=== PATIENT | male | born 1945 | race Caucasian/White ===

== ENCOUNTER 2020-03-06 15:59 | Observation (INO) ==
[2020-03-06] MEDS ORDERED: Ondansetron 4 MG/2 ML VIAL IVP PRN (18:43)
[2020-03-06] MEDS ORDERED: Naloxone 0.4 MG/ML INJ IVP PRN (18:43)
[2020-03-06] MEDS: Acetaminophen 325 MG TABLET PO PRN (22:16)
[2020-03-06 22:30] LABS: Eosinophils % 0.6 %; Hemoglobin 15.2 g/dL (12.9-16.9); White Blood Count 3.3 K/mcL (4.3-11.1)
[2020-03-06 22:32] LABS: Basophils % 0.9 %; Hematocrit 46.3 % (37.5-50.1); Immature Granulocytes % 0.9 % (0-4); Immature Platelets 6.2 % (1.1-6.1); Lymphocytes # 0.9 K/mcL (0.6-4.6); Lymphocytes % 25.8 %; Mean Corpuscular HGB Conc 32.8 g/dL (31.6-35.5); Mean Corpuscular Hemoglobin 26.9 pg (28.0-33.3); Mean Corpuscular Volume 81.9 fL (83.0-100.0); Mean Platelet Volume 10.4 fL (9.4-12.4); Monocytes # 0.5 K/mcL (0.0-1.3); Monocytes % 13.8 %; Neutrophils # 1.9 K/mcL (1.6-8.9); Red Blood Count 5.65 M/mcL (4.19-5.50); Red Cell Distribution Width 15.3 % (11.5-14.5)
[2020-03-06 22:53] LABS: Alanine Aminotransferase 34 Units/L (7-52); Albumin 3.9 g/dL (3.5-5.7); Albumin/Globulin Ratio 1.6 (1.1-2.2); Alkaline Phosphatase 66 Units/L (34-104); Aspartate Amino Transferase 52 Units/L (13-39); BUN/Creatinine Ratio 15 (6-26); Bilirubin,Total 1.5 mg/dL (0.3-1.0); Blood Urea Nitrogen 24 mg/dL (8-23); Calcium 8.8 mg/dL (8.6-10.3); Carbon Dioxide 25 mEq/L (23-29); Chloride 94 mEq/L (98-107); Globulin 2.5 g/dL (2.4-3.5); Glucose 78 mg/dL (70-105); Magnesium 1.7 mg/dL (1.6-2.6); Osmolality,Calculated 269 (280-300); Phosphorous 2.3 mg/dL (2.7-4.5); Potassium 4.4 mEq/L (3.5-5.1); Sodium 128 mEq/L (136-145); Total Protein 6.4 g/dL (6.4-8.9); Troponin I < 0.03 ng/mL (< 0.04); eGFR For African Americans 52 (> 60); eGFR For Non-African Americans 43 (> 60)
[2020-03-06 23:01] LABS: Platelet Count 97 K/mcL (140-400)
[2020-03-06 23:02] LABS: Reactive Lymphocytes Present (Not Present)
[2020-03-07] MEDS ORDERED: 0.9 % Sodium Chloride 1,000 ML IVC ONE (00:22)
[2020-03-07] MEDS: cefTRIAXone 1,000 MG in Water for inj. (sterile) 10 ML IVP SCH ×2 (00:41→07:58)
[2020-03-07] MEDS ORDERED: Potassium Phosphate 44 MEQ in 0.9 % Sodium Chloride 250 ML IVPB ONE (02:25)
[2020-03-07 04:07] LABS: Hematocrit 43.3 % (37.5-50.1); Hemoglobin 14.2 g/dL (12.9-16.9); Immature Platelets 6.5 % (1.1-6.1); Mean Corpuscular HGB Conc 32.8 g/dL (31.6-35.5); Mean Corpuscular Hemoglobin 26.6 pg (28.0-33.3); Mean Corpuscular Volume 81.2 fL (83.0-100.0); Mean Platelet Volume 10.5 fL (9.4-12.4); Red Blood Count 5.33 M/mcL (4.19-5.50); Red Cell Distribution Width 15.2 % (11.5-14.5); White Blood Count 3.2 K/mcL (4.3-11.1)
[2020-03-07 04:11] LABS: Bilirubin,Urine Negative (Negative); Blood,Urine Negative (Negative); Clarity,Urine Clear (Clear); Color,Urine Yellow (Yellow); Glucose,Urine (UA) Normal (Normal); Ketones,Urine 20 mg/dL (Negative); Leukocyte Esterase,Urine Negative (Negative); Mucus,Urine Few per lpf (None-Few); Nitrite,Urine Negative (Negative); Protein,Urine 50 mg/dL (Neg-Trace); RBC,Urine 0-3 per hpf (0-3); Specific Gravity,Urine 1.029 (1.010-1.025); Squamous Epithelial Cell,Urine Few per hpf (None-Few); WBC,Urine 0-3 per hpf (0-3)
[2020-03-07 04:28] LABS: Calcium 8.4 mg/dL (8.6-10.3); Phosphorous 2.2 mg/dL (2.7-4.5); Potassium 4.4 mEq/L (3.5-5.1)
[2020-03-07] MEDS: *HR* Heparin 5,000 UNIT/ML VIAL SQ SCH ×3 (05:42→19:59)
[2020-03-07] MEDS ORDERED: Fluticasone Propionate Nasal 50 MCG/SPRAY BOTTLE NS PRN (07:55)
[2020-03-07] MEDS: Sucralfate 1 GM TABLET PO SCH ×2 (10:30→20:12)
[2020-03-07] MEDS: Aspirin Enteric Coated 81 MG Tablet PO SCH (10:31)
[2020-03-07] MEDS: Cyanocobalamin (B-12) 1,000 MCG TABLET PO SCH (10:31)
[2020-03-07] MEDS: Gabapentin 300 MG CAPSULE PO SCH ×2 (10:32→20:12)
[2020-03-07] MEDS: 0.9 % Sodium Chloride 1,000 ML IVC SCH (16:30)
[2020-03-07] MEDS: Acetaminophen 325 MG TABLET PO PRN (18:30)
[2020-03-07] MEDS: clonazePAM 0.5 MG TABLET PO SCH (20:12)
[2020-03-08] MEDS: 0.9 % Sodium Chloride 1,000 ML IVC SCH ×2 (03:49→15:46)
[2020-03-08 05:21] LABS: Albumin 3.3 g/dL (3.5-5.7); Albumin/Globulin Ratio 1.7 (1.1-2.2); Bilirubin,Total 0.8 mg/dL (0.3-1.0); Calcium 8.1 mg/dL (8.6-10.3); Phosphorous 2.7 mg/dL (2.7-4.5); Potassium 4.1 mEq/L (3.5-5.1); Total Protein 5.3 g/dL (6.4-8.9)
[2020-03-08 05:24] LABS: Hematocrit 40.6 % (37.5-50.1); Hemoglobin 13.1 g/dL (12.9-16.9); Immature Platelets 7.6 % (1.1-6.1); Mean Corpuscular HGB Conc 32.3 g/dL (31.6-35.5); Mean Corpuscular Hemoglobin 26.6 pg (28.0-33.3); Mean Corpuscular Volume 82.4 fL (83.0-100.0); Mean Platelet Volume 10.5 fL (9.4-12.4); Red Blood Count 4.93 M/mcL (4.19-5.50); Red Cell Distribution Width 15.8 % (11.5-14.5); White Blood Count 3.3 K/mcL (4.3-11.1)
[2020-03-08] MEDS: Acetaminophen 325 MG TABLET PO PRN (08:40)
[2020-03-08] MEDS: Aspirin Enteric Coated 81 MG Tablet PO SCH (08:40)
[2020-03-08] MEDS: Gabapentin 300 MG CAPSULE PO SCH ×3 (08:41→22:21)
[2020-03-08] MEDS: Sucralfate 1 GM TABLET PO SCH ×2 (08:41→22:21)
[2020-03-08] MEDS: Cyanocobalamin (B-12) 1,000 MCG TABLET PO SCH (08:42)
[2020-03-08] MEDS: lisinopriL 10 MG TABLET PO SCH (08:42)
[2020-03-08] MEDS ORDERED: Ipratropium/Albuterol Neb 3 ML IH PRN (12:42)
[2020-03-08] MEDS ORDERED: Ipratropium/Albuterol Neb 3 ML IH ONE (12:42)
[2020-03-08 14:15] LABS: Hepatitis B Surface Antigen Nonreactive (Nonreactive)
[2020-03-08 14:43] LABS: Hepatitis B Core IgM Nonreactive (Nonreactive)
[2020-03-08 14:44] LABS: Hepatitis C Virus Antibody Nonreactive (Nonreactive)
[2020-03-08] MEDS: *HR* Heparin 5,000 UNIT/ML VIAL SQ SCH ×2 (18:54→22:20)
[2020-03-08 19:39] LABS: Hepatitis A Antibody IgM Nonreactive (Nonreactive)
[2020-03-08] MEDS: clonazePAM 0.5 MG TABLET PO SCH (22:21)
[2020-03-09 05:32] LABS: Hemoglobin 12.8 g/dL (12.9-16.9); Red Cell Distribution Width 15.9 % (11.5-14.5)
[2020-03-09 05:34] LABS: Hematocrit 38.9 % (37.5-50.1); Immature Platelets 8.5 % (1.1-6.1); Mean Corpuscular HGB Conc 32.9 g/dL (31.6-35.5); Mean Corpuscular Hemoglobin 27.2 pg (28.0-33.3); Mean Corpuscular Volume 82.6 fL (83.0-100.0); Mean Platelet Volume 10.5 fL (9.4-12.4); Red Blood Count 4.71 M/mcL (4.19-5.50)
[2020-03-09 05:49] LABS: BUN/Creatinine Ratio 16 (6-26); Blood Urea Nitrogen 18 mg/dL (8-23); Calcium 8.2 mg/dL (8.6-10.3); Carbon Dioxide 25 mEq/L (23-29); Chloride 102 mEq/L (98-107); Glucose 106 mg/dL (70-105); Osmolality,Calculated 276 (280-300); Potassium 4.2 mEq/L (3.5-5.1); Sodium 132 mEq/L (136-145); eGFR For African Americans > 60 (> 60); eGFR For Non-African Americans > 60 (> 60)
[2020-03-09] MEDS: *HR* Heparin 5,000 UNIT/ML VIAL SQ SCH (06:31)
[2020-03-09] MEDS: 0.9 % Sodium Chloride 1,000 ML IVC SCH ×2 (06:32→10:18)
[2020-03-09 07:08] VITALS: BP 107/69
[2020-03-09] MEDS: Aspirin Enteric Coated 81 MG Tablet PO SCH (07:36)
[2020-03-09] MEDS: Gabapentin 300 MG CAPSULE PO SCH (07:37)
[2020-03-09] MEDS: Sucralfate 1 GM TABLET PO SCH (07:37)
[2020-03-09] MEDS: cefTRIAXone 1,000 MG in Water for inj. (sterile) 10 ML IVP SCH (07:38)
[2020-03-09] MEDS: Cyanocobalamin (B-12) 1,000 MCG TABLET PO SCH (07:38)
[2020-03-09] MEDS: lisinopriL 10 MG TABLET PO SCH (07:38)
== END 2020-03-09 11:58 | disposition home or self-care (01) ==
LOC: 3BNU
PROVIDERS: ADMIT Internal Medicine; ATTEND Internal Medicine

== ENCOUNTER 2020-11-01 17:13 | Inpatient (IN) ==
[2020-11-01] MEDS ORDERED: *HR* FentaNYL (PF) 100 MCG/2 ML VIAL IVP ONE (18:21)
[2020-11-01] MEDS ORDERED: Gadolinium Contrast Agent (WT Based) IV PRN ×2 (18:22→18:41)
[2020-11-01 18:33] LABS: Basophils % 0.2 %; Eosinophils % 0.2 %; Hematocrit 40.7 % (37.5-50.1); Hemoglobin 13.1 g/dL (12.9-16.9); Immature Granulocytes % 0.6 % (0-4); Lymphocytes % 12.7 %; Mean Corpuscular HGB Conc 32.2 g/dL (31.6-35.5); Mean Corpuscular Volume 83.9 fL (83.0-100.0); Mean Platelet Volume 9.7 fL (9.4-12.4); Monocytes # 0.9 K/mcL (0.0-1.3); Monocytes % 9.5 %; Neutrophils # 6.9 K/mcL (1.6-8.9); Platelet Count 109 K/mcL (140-400); Red Blood Count 4.85 M/mcL (4.19-5.50); Red Cell Distribution Width 15.9 % (11.5-14.5); Segmented Neutrophils % 76.8 %
[2020-11-01 18:38] LABS: Lymphocytes # 1.1 K/mcL (0.6-4.6)
[2020-11-01 18:49] LABS: Calcium 8.8 mg/dL (8.6-10.3); Potassium 4.4 mEq/L (3.5-5.1)
[2020-11-01 19:28] LABS: Platelet Estimate Slight Decrease (Normal); Reactive Lymphocytes Present (Not Present)
[2020-11-01] MEDS ORDERED: Ondansetron 4 MG/2 ML VIAL IVP PRN (21:07)
[2020-11-01] MEDS ORDERED: Acetaminophen 325 MG TABLET PO PRN (21:07)
[2020-11-01] MEDS ORDERED: Naloxone 0.4 MG/ML INJ IVP PRN (21:07)
[2020-11-01] MEDS: 0.9 % Sodium Chloride 1,000 ML IVC SCH (22:20)
[2020-11-01] MEDS: *HR* OxyCODONE Immed Rel 5 MG TABLET PO PRN (22:20)
[2020-11-02 05:39] LABS: Basophils % 0.3 %; Eosinophils % 0.3 %; Hematocrit 37.3 % (37.5-50.1); Hemoglobin 12.1 g/dL (12.9-16.9); Immature Granulocytes % 0.5 % (0-4); Lymphocytes # 0.8 K/mcL (0.6-4.6); Mean Corpuscular HGB Conc 32.4 g/dL (31.6-35.5); Mean Corpuscular Hemoglobin 27.1 pg (28.0-33.3); Mean Corpuscular Volume 83.6 fL (83.0-100.0); Mean Platelet Volume 10.2 fL (9.4-12.4); Monocytes # 0.7 K/mcL (0.0-1.3); Neutrophils # 5.1 K/mcL (1.6-8.9); Platelet Count 100 K/mcL (140-400); Red Blood Count 4.46 M/mcL (4.19-5.50); Red Cell Distribution Width 15.8 % (11.5-14.5); Segmented Neutrophils % 76.9 %; White Blood Count 6.6 K/mcL (4.3-11.1)
[2020-11-02 05:48] LABS: INR 1.4; Prothrombin Time 16.3 Seconds (9.4-12.1)
[2020-11-02 07:27] LABS: Albumin 3.5 g/dL (3.5-5.7); Albumin/Globulin Ratio 1.6 (1.1-2.2); Bilirubin,Total 1.3 mg/dL (0.3-1.0); Calcium 8.4 mg/dL (8.6-10.3); Globulin 2.2 g/dL (2.4-3.5); Magnesium 1.7 mg/dL (1.6-2.6); Potassium 4.1 mEq/L (3.5-5.1); Total Protein 5.7 g/dL (6.4-8.9)
[2020-11-02] MEDS: 0.9 % Sodium Chloride 1,000 ML IVC SCH (08:07)
[2020-11-02 08:39] LABS: Source,Synovial Fluid Left Knee
[2020-11-02] MEDS: *HR* OxyCODONE Immed Rel 5 MG TABLET PO PRN ×2 (08:52→15:39)
[2020-11-02 10:19] LABS: Glucose,Synovial Fluid < 10 mg/dL (No Ref Range)
[2020-11-02 10:30] LABS: Acinetobacter baumannii by PCR Not Detected (Not Detect); Candida albicans by PCR Not Detected (Not Detect); Candida glabrata by PCR Not Detected (Not Detect); Candida krusei by PCR Not Detected (Not Detect); Candida parapsilosis by PCR Not Detected (Not Detect); Candida tropicalis by PCR Not Detected (Not Detect); Enterobacter cloacae Cmplx PCR Not Detected (Not Detect); Enterobacteriaceae by PCR Not Detected (Not Detect); Enterococcus by PCR Not Detected (Not Detect); Escherichia coli by PCR Not Detected (Not Detect); Klebsiella oxytoca by PCR Not Detected (Not Detect); Klebsiella pneumoniae by PCR Not Detected (Not Detect); Proteus by PCR Not Detected (Not Detect); Pseudomonas aeruginosa by PCR Not Detected (Not Detect); Serratia marcescens by PCR Not Detected (Not Detect); Staphylococcus aureus by PCR Not Detected (Not Detect); Staphylococcus by PCR Not Detected (Not Detect); Streptococcus agalactiae(B)PCR DETECTED (Not Detect); Streptococcus pneumoniae PCR Not Detected (Not Detect); Streptococcus pyogenes (A) PCR Not Detected (Not Detect)
[2020-11-02 11:23] LABS: Appearance,Synovial Fluid Bloody (Clear-Hazy); Color,Synovial Fluid Red (Straw)
[2020-11-02 16:14] LABS: Bilirubin,Urine Negative (Negative); Blood,Urine Negative (Negative); Clarity,Urine Clear (Clear); Color,Urine Yellow (Yellow); Glucose,Urine (UA) Normal (Normal); Ketones,Urine Trace mg/dL (Negative); Leukocyte Esterase,Urine Negative (Negative); Mucus,Urine Few per lpf (None-Few); Nitrite,Urine Negative (Negative); PH,Urine 5.5 pH Units (5.0-8.0); Protein,Urine 30 mg/dL (Neg-Trace); RBC,Urine 0-3 per hpf (0-3); Squamous Epithelial Cell,Urine Few per hpf (None-Few); WBC,Urine 0-3 per hpf (0-3)
[2020-11-02] MEDS ORDERED: cefTRIAXone 2,000 MG in Water for inj. (sterile) 20 ML IVP SCH (17:00)
[2020-11-02] MEDS ORDERED: TOTAL JOINT MIXTURE (100ML) INTRAART ONE (17:30)
[2020-11-02] MEDS ORDERED: Povidone-Iodine 45 ML, Sodium Chloride IRRigation 1,000 ML IR ONE (17:30)
[2020-11-02] MEDS ORDERED: Hydrogen Peroxide 3% (Sterile) 473 ML SOLUTION IR ONE (18:45)
[2020-11-02] MEDS ORDERED: *HR* HYDROmorphone PF 0.5 MG/0.5 ML SYRINGE IVP PRN (18:56)
[2020-11-02] MEDS ORDERED: *HR* FentaNYL (PF) 100 MCG/2 ML VIAL ONE (19:06)
[2020-11-02] MEDS ORDERED: *HR* Propofol 200 MG/20 ML VIAL IVP ONE ×2 (19:07→20:10)
[2020-11-02] MEDS ORDERED: Lidocaine -MPF 2% 2 ML VIAL ONE (19:08)
[2020-11-02] MEDS ORDERED: *HR* Rocuronium Bromide 50 MG/5 ML VIAL ONE (19:08)
[2020-11-02] MEDS ORDERED: Gentamicin 80 MG/2 ML VIAL ONE (19:57)
[2020-11-02] MEDS ORDERED: *HR* HYDROMORPHONE 2 MG/ML VIAL ONE (20:25)
[2020-11-02] MEDS ORDERED: Ondansetron 4 MG/2 ML VIAL ONE (20:27)
[2020-11-02] MEDS ORDERED: clonazePAM 0.5 MG TABLET PO SCH (21:00)
[2020-11-02] MEDS ORDERED: carBAMazepine 200 MG TABLET PO SCH (21:00)
[2020-11-02] MEDS ORDERED: cefTRIAXone 2,000 MG in 0.9 % Sodium Chloride Mini Bag 100 ML IVPB ONE (21:00)
[2020-11-02 21:12] LABS: Source,Synovial Fluid left knee
[2020-11-02] MEDS ORDERED: Acetaminophen IV 1,000 MG/100 ML BAG IVPB ONE (21:19)
[2020-11-02 21:54] LABS: Appearance,Synovial Fluid Cloudy (Clear-Hazy); Color,Synovial Fluid Red (Straw)
[2020-11-02] MEDS ORDERED: Vancomycin 1,000 MG VIAL ONE ×2 (22:18→22:25)
[2020-11-02] MEDS ORDERED: Albumin Human 5% 12.5 GM/250 ML IV.SOLN ONE (23:37)
[2020-11-02] MEDS ORDERED: *HR* OxyCODONE Immed Rel 5 MG TABLET PO ONE (23:40)
[2020-11-03] MEDS ORDERED: cefTRIAXone 2,000 MG in 0.9 % Sodium Chloride Mini Bag 100 ML IVPB ONE (00:05)
[2020-11-03] MEDS ORDERED: Povidone-Iodine 45 ML, Sodium Chloride IRRigation 1,000 ML IR ONE (00:05)
[2020-11-03] MEDS ORDERED: Gadolinium Contrast Agent (WT Based) IV PRN ×2 (00:05)
[2020-11-03] MEDS ORDERED: Naloxone 0.4 MG/ML INJ IVP PRN (00:05)
[2020-11-03] MEDS ORDERED: Ropivacaine/PF 0.5% 49.24 ML, EPINEPHrine 0.5 MG, cloNIDine 0.08 MG, Ketorolac 30 MG, 0... INTRAART ONE (00:05)
[2020-11-03] MEDS ORDERED: *HR* HYDROmorphone PF 0.5 MG/0.5 ML SYRINGE IVP PRN (00:05)
[2020-11-03] MEDS ORDERED: Hydrogen Peroxide 3% (Sterile) 473 ML SOLUTION IR ONE (00:05)
[2020-11-03] MEDS ORDERED: Ondansetron 4 MG/2 ML VIAL IVP PRN (00:05)
[2020-11-03] MEDS: Acetaminophen 325 MG TABLET PO PRN ×3 (01:04→23:06)
[2020-11-03] MEDS: CEFAZOLIN IVPB SCH ×3 (01:05→17:22)
[2020-11-03 05:16] LABS: Red Cell Distribution Width 15.8 % (11.5-14.5)
[2020-11-03 05:17] LABS: Hematocrit 32.7 % (37.5-50.1); Hemoglobin 10.8 g/dL (12.9-16.9); Immature Platelets 4.1 % (1.1-6.1); Mean Corpuscular Hemoglobin 27.6 pg (28.0-33.3); Mean Corpuscular Volume 83.4 fL (83.0-100.0); Mean Platelet Volume 10.2 fL (9.4-12.4); Red Blood Count 3.92 M/mcL (4.19-5.50); White Blood Count 4.8 K/mcL (4.3-11.1)
[2020-11-03 05:34] LABS: BUN/Creatinine Ratio 27 (6-26); Blood Urea Nitrogen 34 mg/dL (8-23); Calcium 7.9 mg/dL (8.6-10.3); Carbon Dioxide 22 mEq/L (23-29); Chloride 104 mEq/L (98-107); Glucose 133 mg/dL (70-105); Osmolality,Calculated 284 (280-300); Potassium 4.5 mEq/L (3.5-5.1); Sodium 132 mEq/L (136-145); eGFR For African Americans > 60 (> 60); eGFR For Non-African Americans 54 (> 60)
[2020-11-03] MEDS: *HR* OxyCODONE Immed Rel 5 MG TABLET PO PRN ×3 (06:01→20:07)
[2020-11-03] MEDS: Cholecalciferol (D-3) 1,000 UNIT (25MCG) TABLET PO SCH (08:19)
[2020-11-03] MEDS: Aspirin Enteric Coated 81 MG Tablet PO SCH (08:20)
[2020-11-03] MEDS: Cyanocobalamin (B-12) 1,000 MCG TABLET PO SCH (08:20)
[2020-11-03] MEDS: lisinopriL 10 MG TABLET PO SCH (08:20)
[2020-11-03] MEDS: carBAMazepine 200 MG TABLET PO SCH ×2 (08:20→20:07)
[2020-11-03] MEDS ORDERED: Aspirin Enteric Coated 81 MG Tablet PO SCH (09:00)
[2020-11-03] MEDS ORDERED: (Alfuzosin Hcl [Uroxatral] 10 MG Tab.Er.24h) PO SCH ×2 (09:00)
[2020-11-03] MEDS ORDERED: Cholecalciferol (D-3) 1,000 UNIT (25MCG) TABLET PO SCH (09:00)
[2020-11-03] MEDS ORDERED: lisinopriL 10 MG TABLET PO SCH (09:00)
[2020-11-03] MEDS ORDERED: Cyanocobalamin (B-12) 1,000 MCG TABLET PO SCH (09:00)
[2020-11-03] MEDS: Tiotropium 10 INH DOSE IH SCH (09:54)
[2020-11-03] MEDS ORDERED: Tiotropium 10 INH DOSE IH SCH (10:00)
[2020-11-03] MEDS: Ketorolac 30 MG/ML VIAL IVP PRN (16:07)
[2020-11-03] MEDS: cefTRIAXone 2,000 MG in Water for inj. (sterile) 20 ML IVP SCH (20:08)
[2020-11-03] MEDS: clonazePAM 0.5 MG TABLET PO SCH (20:08)
[2020-11-03] MEDS ORDERED: cefTRIAXone 2,000 MG in Water for inj. (sterile) 20 ML IVP SCH (21:00)
[2020-11-04] MEDS: *HR* OxyCODONE Immed Rel 5 MG TABLET PO PRN ×3 (05:41→21:02)
[2020-11-04 06:50] LABS: Hematocrit 30.7 % (37.5-50.1); Hemoglobin 9.9 g/dL (12.9-16.9); Immature Platelets 5.3 % (1.1-6.1); Mean Corpuscular HGB Conc 32.2 g/dL (31.6-35.5); Mean Corpuscular Hemoglobin 26.9 pg (28.0-33.3); Mean Corpuscular Volume 83.4 fL (83.0-100.0); Mean Platelet Volume 10.6 fL (9.4-12.4); Red Blood Count 3.68 M/mcL (4.19-5.50); Red Cell Distribution Width 15.5 % (11.5-14.5); White Blood Count 5.5 K/mcL (4.3-11.1)
[2020-11-04 07:07] LABS: BUN/Creatinine Ratio 28 (6-26); Blood Urea Nitrogen 34 mg/dL (8-23); Calcium 8.3 mg/dL (8.6-10.3); Carbon Dioxide 28 mEq/L (23-29); Chloride 103 mEq/L (98-107); Glucose 106 mg/dL (70-105); Osmolality,Calculated 286 (280-300); Sodium 134 mEq/L (136-145); eGFR For African Americans > 60 (> 60); eGFR For Non-African Americans 57 (> 60)
[2020-11-04] MEDS: Cholecalciferol (D-3) 1,000 UNIT (25MCG) TABLET PO SCH (09:15)
[2020-11-04] MEDS: Aspirin Enteric Coated 81 MG Tablet PO SCH (09:15)
[2020-11-04] MEDS: Cyanocobalamin (B-12) 1,000 MCG TABLET PO SCH (09:16)
[2020-11-04] MEDS: Ketorolac 30 MG/ML VIAL IVP PRN ×2 (09:16→17:49)
[2020-11-04] MEDS: lisinopriL 10 MG TABLET PO SCH (09:21)
[2020-11-04] MEDS: carBAMazepine 200 MG TABLET PO SCH ×2 (09:21→21:03)
[2020-11-04] MEDS: Tiotropium 10 INH DOSE IH SCH (09:54)
[2020-11-04] MEDS: clonazePAM 0.5 MG TABLET PO SCH (21:03)
[2020-11-04] MEDS: cefTRIAXone 2,000 MG in Water for inj. (sterile) 20 ML IVP SCH (21:04)
[2020-11-05 02:06] LABS: Hematocrit 29.7 % (37.5-50.1); Hemoglobin 9.6 g/dL (12.9-16.9); Immature Platelets 4.2 % (1.1-6.1); Mean Corpuscular HGB Conc 32.3 g/dL (31.6-35.5); Mean Corpuscular Volume 83.4 fL (83.0-100.0); Mean Platelet Volume 10.7 fL (9.4-12.4); Red Blood Count 3.56 M/mcL (4.19-5.50); Red Cell Distribution Width 15.4 % (11.5-14.5); White Blood Count 5.8 K/mcL (4.3-11.1)
[2020-11-05 02:26] LABS: BUN/Creatinine Ratio 24 (6-26); Blood Urea Nitrogen 30 mg/dL (8-23); Calcium 8.1 mg/dL (8.6-10.3); Carbon Dioxide 27 mEq/L (23-29); Chloride 100 mEq/L (98-107); Glucose 84 mg/dL (70-105); Osmolality,Calculated 281 (280-300); Potassium 4.6 mEq/L (3.5-5.1); Sodium 133 mEq/L (136-145); eGFR For African Americans > 60 (> 60); eGFR For Non-African Americans 57 (> 60)
[2020-11-05] MEDS: *HR* OxyCODONE Immed Rel 5 MG TABLET PO PRN ×2 (07:37→13:58)
[2020-11-05] MEDS: carBAMazepine 200 MG TABLET PO SCH ×2 (07:37→20:25)
[2020-11-05] MEDS: lisinopriL 10 MG TABLET PO SCH (07:38)
[2020-11-05] MEDS: Cyanocobalamin (B-12) 1,000 MCG TABLET PO SCH (07:38)
[2020-11-05] MEDS: Cholecalciferol (D-3) 1,000 UNIT (25MCG) TABLET PO SCH (07:38)
[2020-11-05] MEDS: Aspirin Enteric Coated 81 MG Tablet PO SCH (07:38)
[2020-11-05] MEDS: Tiotropium 10 INH DOSE IH SCH (11:05)
[2020-11-05] MEDS: Ketorolac 30 MG/ML VIAL IVP PRN ×2 (11:32→19:35)
[2020-11-05] MEDS: clonazePAM 0.5 MG TABLET PO SCH (20:25)
[2020-11-05] MEDS: cefTRIAXone 2,000 MG in Water for inj. (sterile) 20 ML IVP SCH (20:26)
[2020-11-06 01:12] LABS: Hematocrit 30.1 % (37.5-50.1); Hemoglobin 10.1 g/dL (12.9-16.9); Mean Corpuscular HGB Conc 33.6 g/dL (31.6-35.5); Mean Corpuscular Hemoglobin 27.4 pg (28.0-33.3); Mean Corpuscular Volume 81.6 fL (83.0-100.0); Mean Platelet Volume 10.2 fL (9.4-12.4); Platelet Count 148 K/mcL (140-400); Red Blood Count 3.69 M/mcL (4.19-5.50); Red Cell Distribution Width 15.1 % (11.5-14.5)
[2020-11-06 01:30] LABS: BUN/Creatinine Ratio 24 (6-26); Blood Urea Nitrogen 30 mg/dL (8-23); Calcium 8.2 mg/dL (8.6-10.3); Carbon Dioxide 25 mEq/L (23-29); Chloride 101 mEq/L (98-107); Glucose 92 mg/dL (70-105); Osmolality,Calculated 282 (280-300); Potassium 4.1 mEq/L (3.5-5.1); Sodium 133 mEq/L (136-145); eGFR For African Americans > 60 (> 60); eGFR For Non-African Americans 56 (> 60)
[2020-11-06] MEDS: Tiotropium 10 INH DOSE IH SCH (07:58)
[2020-11-06] MEDS: Aspirin Enteric Coated 81 MG Tablet PO SCH (08:18)
[2020-11-06] MEDS: carBAMazepine 200 MG TABLET PO SCH ×2 (08:19→21:28)
[2020-11-06] MEDS: Cholecalciferol (D-3) 1,000 UNIT (25MCG) TABLET PO SCH (08:19)
[2020-11-06] MEDS: *HR* OxyCODONE Immed Rel 5 MG TABLET PO PRN ×2 (08:20→14:35)
[2020-11-06] MEDS: lisinopriL 10 MG TABLET PO SCH (08:22)
[2020-11-06] MEDS: Cyanocobalamin (B-12) 1,000 MCG TABLET PO SCH (08:23)
[2020-11-06] MEDS: Ketorolac 30 MG/ML VIAL IVP PRN ×2 (12:13→21:29)
[2020-11-06] MEDS: Acetaminophen 325 MG TABLET PO PRN (14:35)
[2020-11-06 17:00] LABS: C-Reactive Protein 66 mg/L (Less than 10)
[2020-11-06] MEDS: *HR* Heparin 5,000 UNIT/ML VIAL SQ SCH (18:24)
[2020-11-06] MEDS: clonazePAM 0.5 MG TABLET PO SCH (21:28)
[2020-11-06] MEDS: cefTRIAXone 2,000 MG in Water for inj. (sterile) 20 ML IVP SCH (21:28)
[2020-11-07] MEDS: *HR* Heparin 5,000 UNIT/ML VIAL SQ SCH ×2 (04:56→18:18)
[2020-11-07 05:20] LABS: Hematocrit 29.6 % (37.5-50.1); Hemoglobin 9.9 g/dL (12.9-16.9); Mean Corpuscular HGB Conc 33.4 g/dL (31.6-35.5); Mean Corpuscular Hemoglobin 27.7 pg (28.0-33.3); Mean Corpuscular Volume 82.7 fL (83.0-100.0); Mean Platelet Volume 9.6 fL (9.4-12.4); Platelet Count 190 K/mcL (140-400); Red Blood Count 3.58 M/mcL (4.19-5.50); Red Cell Distribution Width 15.2 % (11.5-14.5); White Blood Count 6.5 K/mcL (4.3-11.1)
[2020-11-07 05:42] LABS: BUN/Creatinine Ratio 25 (6-26); Blood Urea Nitrogen 29 mg/dL (8-23); Calcium 8.2 mg/dL (8.6-10.3); Carbon Dioxide 28 mEq/L (23-29); Chloride 98 mEq/L (98-107); Glucose 100 mg/dL (70-105); Osmolality,Calculated 280 (280-300); Potassium 4.5 mEq/L (3.5-5.1); Sodium 132 mEq/L (136-145); eGFR For African Americans > 60 (> 60); eGFR For Non-African Americans 60 (> 60)
[2020-11-07] MEDS: Tiotropium 10 INH DOSE IH SCH (07:46)
[2020-11-07] MEDS: Cholecalciferol (D-3) 1,000 UNIT (25MCG) TABLET PO SCH (08:30)
[2020-11-07] MEDS: carBAMazepine 200 MG TABLET PO SCH ×2 (08:30→20:43)
[2020-11-07] MEDS: Aspirin Enteric Coated 81 MG Tablet PO SCH (08:30)
[2020-11-07] MEDS: Cyanocobalamin (B-12) 1,000 MCG TABLET PO SCH (08:31)
[2020-11-07] MEDS: lisinopriL 10 MG TABLET PO SCH (08:31)
[2020-11-07] MEDS: Acetaminophen 325 MG TABLET PO PRN ×2 (08:31→14:45)
[2020-11-07] MEDS: *HR* OxyCODONE Immed Rel 5 MG TABLET PO PRN ×3 (08:32→20:43)
[2020-11-07] MEDS: clonazePAM 0.5 MG TABLET PO SCH (20:43)
[2020-11-07] MEDS: cefTRIAXone 2,000 MG in Water for inj. (sterile) 20 ML IVP SCH (20:43)
[2020-11-08] MEDS: *HR* Heparin 5,000 UNIT/ML VIAL SQ SCH (05:07)
[2020-11-08 05:32] LABS: Hematocrit 30.8 % (37.5-50.1); Mean Corpuscular HGB Conc 32.5 g/dL (31.6-35.5); Mean Corpuscular Volume 83.2 fL (83.0-100.0); Mean Platelet Volume 9.8 fL (9.4-12.4); Platelet Count 218 K/mcL (140-400); Red Cell Distribution Width 15.3 % (11.5-14.5); White Blood Count 6.7 K/mcL (4.3-11.1)
[2020-11-08 05:50] LABS: BUN/Creatinine Ratio 19 (6-26); Blood Urea Nitrogen 22 mg/dL (8-23); Calcium 8.5 mg/dL (8.6-10.3); Carbon Dioxide 30 mEq/L (23-29); Chloride 99 mEq/L (98-107); Glucose 103 mg/dL (70-105); Osmolality,Calculated 278 (280-300); Potassium 4.4 mEq/L (3.5-5.1); Sodium 132 mEq/L (136-145); eGFR For African Americans > 60 (> 60); eGFR For Non-African Americans 60 (> 60)
[2020-11-08] MEDS: Tiotropium 10 INH DOSE IH SCH (07:25)
[2020-11-08 07:28] VITALS: BP 125/73
[2020-11-08] MEDS: lisinopriL 10 MG TABLET PO SCH (08:15)
[2020-11-08] MEDS: Cholecalciferol (D-3) 1,000 UNIT (25MCG) TABLET PO SCH (08:15)
[2020-11-08] MEDS: Aspirin Enteric Coated 81 MG Tablet PO SCH (08:16)
[2020-11-08] MEDS: Cyanocobalamin (B-12) 1,000 MCG TABLET PO SCH (08:16)
[2020-11-08] MEDS: carBAMazepine 200 MG TABLET PO SCH (08:16)
[2020-11-08] MEDS: *HR* OxyCODONE Immed Rel 5 MG TABLET PO PRN (08:21)
== END 2020-11-08 15:27 | disposition home health service (06) | DRG 463 ==
LOC: 3NENU 17:13 → EMEROOARM 17:13 → SUATTDRO 18:49 → 3NENU 19:25
PROVIDERS: ADMIT Internal Medicine; ATTEND Family Medicine

== ENCOUNTER 2021-07-23 18:39 | Inpatient (IN) ==
[2021-07-23] MEDS ORDERED: *HR* HYDROmorphone (PF) 1 MG/ML SYRINGE IVP ONE (20:58)
[2021-07-23] MEDS ORDERED: Vancomycin 2,000 MG/520 ML IV.SOLN IVPB ONE (21:01)
[2021-07-23 21:22] LABS: Basophils # 0.1 K/mcL (0.0-0.2); Basophils % 0.5 %; Eosinophils # 0.1 K/mcL (0.0-0.6); Eosinophils % 0.8 %; Hematocrit 38.1 % (37.5-50.1); Hemoglobin 12.1 g/dL (12.9-16.9); Immature Granulocytes % 0.5 % (0-4); Lymphocytes % 9.3 %; Mean Corpuscular HGB Conc 31.8 g/dL (31.6-35.5); Mean Corpuscular Hemoglobin 24.3 pg (28.0-33.3); Mean Corpuscular Volume 76.7 fL (83.0-100.0); Mean Platelet Volume 9.8 fL (9.4-12.4); Monocytes # 0.7 K/mcL (0.0-1.3); Monocytes % 6.4 %; Neutrophils # 9.2 K/mcL (1.6-8.9); Platelet Count 130 K/mcL (140-400); Red Blood Count 4.97 M/mcL (4.19-5.50); Red Cell Distribution Width 17.3 % (11.5-14.5); Segmented Neutrophils % 82.5 %; White Blood Count 11.1 K/mcL (4.3-11.1)
[2021-07-23 21:29] LABS: INR 1.3; Prothrombin Time 14.3 Seconds (9.4-12.1)
[2021-07-23 21:31] LABS: Activated Partial Thrombo Time 33.4 Seconds (26.0-36.0)
[2021-07-23 21:39] LABS: Alanine Aminotransferase 10 Units/L (7-52); Albumin 3.6 g/dL (3.5-5.7); Albumin/Globulin Ratio 1.6 (1.1-2.2); Alkaline Phosphatase 58 Units/L (34-104); Aspartate Amino Transferase 21 Units/L (13-39); BUN/Creatinine Ratio 13 (6-26); Bilirubin,Total 0.8 mg/dL (0.3-1.0); Blood Urea Nitrogen 17 mg/dL (8-23); Calcium 8.6 mg/dL (8.6-10.3); Carbon Dioxide 28 mEq/L (23-29); Chloride 102 mEq/L (98-107); Globulin 2.2 g/dL (2.4-3.5); Glucose 101 mg/dL (70-105); Osmolality,Calculated 282 (280-300); Potassium 4.1 mEq/L (3.5-5.1); Sodium 135 mEq/L (136-145); Total Protein 5.8 g/dL (6.4-8.9); eGFR For African Americans > 60 (> 60); eGFR For Non-African Americans 54 (> 60)
[2021-07-23 21:47] LABS: Troponin I < 0.03 ng/mL (< 0.04)
[2021-07-23] MEDS ORDERED: cefTRIAXone 1,000 MG in 0.9 % Sodium Chloride Mini Bag 100 ML IVPB ONE (22:29)
[2021-07-23] MEDS ORDERED: 0.9 % Sodium Chloride 1,000 ML IVC ONE (23:31)
[2021-07-23] MEDS ORDERED: Acetaminophen 325 MG TABLET PO PRN (23:48)
[2021-07-23] MEDS ORDERED: Naloxone 0.4 MG/ML INJ IVP PRN (23:48)
[2021-07-23] MEDS ORDERED: Ondansetron 4 MG/2 ML VIAL IVP PRN (23:48)
[2021-07-24 02:22] LABS: Bilirubin,Urine Negative (Negative); Blood,Urine Negative (Negative); Clarity,Urine Clear (Clear); Color,Urine Light-Orange (Yellow); Glucose,Urine (UA) Normal (Normal); Ketones,Urine Negative (Negative); Leukocyte Esterase,Urine Negative (Negative); Mucus,Urine Many per lpf (None-Few); Nitrite,Urine Negative (Negative); Protein,Urine 50 mg/dL (Neg-Trace); RBC,Urine 0-3 per hpf (0-3); Specific Gravity,Urine > 1.030 (1.010-1.025); Squamous Epithelial Cell,Urine Few per hpf (None-Few)
[2021-07-24 06:34] LABS: Basophils # 0.1 K/mcL (0.0-0.2); Basophils % 0.6 %; Eosinophils # 0.2 K/mcL (0.0-0.6); Eosinophils % 1.9 %; Hematocrit 35.5 % (37.5-50.1); Hemoglobin 11.5 g/dL (12.9-16.9); Immature Granulocytes % 0.4 % (0-4); Lymphocytes % 12.4 %; Mean Corpuscular HGB Conc 32.4 g/dL (31.6-35.5); Mean Corpuscular Volume 77.2 fL (83.0-100.0); Mean Platelet Volume 9.7 fL (9.4-12.4); Monocytes # 0.8 K/mcL (0.0-1.3); Monocytes % 9.3 %; Neutrophils # 6.2 K/mcL (1.6-8.9); Platelet Count 122 K/mcL (140-400); Red Cell Distribution Width 17.5 % (11.5-14.5); Segmented Neutrophils % 75.4 %; White Blood Count 8.2 K/mcL (4.3-11.1)
[2021-07-24 06:43] LABS: INR 1.3; Prothrombin Time 14.9 Seconds (9.4-12.1)
[2021-07-24 06:51] LABS: Calcium 8.2 mg/dL (8.6-10.3); Magnesium 1.7 mg/dL (1.6-2.6)
[2021-07-24] MEDS: cefTRIAXone 1,000 MG in 0.9 % Sodium Chloride Mini Bag 100 ML IVPB SCH (08:55)
[2021-07-24] MEDS ORDERED: Vancomycin 1,500 MG/265 ML IV.SOLN IVPB SCH (10:00)
[2021-07-24] MEDS ORDERED: Vancomycin 2,000 MG/520 ML IV.SOLN IVPB SCH (22:00)
[2021-07-25] MEDS: clonazePAM 0.5 MG TABLET PO SCH ×2 (00:16→21:26)
[2021-07-25 04:50] LABS: Hematocrit 37.4 % (37.5-50.1); Hemoglobin 11.8 g/dL (12.9-16.9); Mean Corpuscular HGB Conc 31.6 g/dL (31.6-35.5); Mean Corpuscular Hemoglobin 24.6 pg (28.0-33.3); Mean Corpuscular Volume 77.9 fL (83.0-100.0); Mean Platelet Volume 10.5 fL (9.4-12.4); Platelet Count 137 K/mcL (140-400); Red Cell Distribution Width 17.4 % (11.5-14.5); White Blood Count 7.2 K/mcL (4.3-11.1)
[2021-07-25 05:06] LABS: BUN/Creatinine Ratio 15 (6-26); Blood Urea Nitrogen 19 mg/dL (8-23); Calcium 8.4 mg/dL (8.6-10.3); Carbon Dioxide 24 mEq/L (23-29); Chloride 103 mEq/L (98-107); Glucose 91 mg/dL (70-105); Osmolality,Calculated 282 (280-300); Sodium 135 mEq/L (136-145); eGFR For African Americans > 60 (> 60); eGFR For Non-African Americans 56 (> 60)
[2021-07-25] MEDS: cefTRIAXone 1,000 MG in 0.9 % Sodium Chloride Mini Bag 100 ML IVPB SCH (10:11)
[2021-07-25] MEDS: CeFAZolin 2,000 MG/120 ML BAG IVPB SCH ×2 (16:30→23:54)
[2021-07-25] MEDS: carBAMazepine 200 MG TABLET PO SCH (19:44)
[2021-07-25] MEDS ORDERED: NON-FORMULARY MEDICATION 1 EACH EACH (Clonazepam [Clonazepam] 0.5 MG Tablet) PO SCH (21:00)
[2021-07-26 05:26] LABS: Basophils # 0.1 K/mcL (0.0-0.2); Eosinophils # 0.4 K/mcL (0.0-0.6); Hematocrit 37.3 % (37.5-50.1); Hemoglobin 11.7 g/dL (12.9-16.9); Immature Granulocytes % 0.2 % (0-4); Lymphocytes # 1.4 K/mcL (0.6-4.6); Lymphocytes % 23.4 %; Mean Corpuscular HGB Conc 31.4 g/dL (31.6-35.5); Mean Corpuscular Hemoglobin 24.5 pg (28.0-33.3); Mean Platelet Volume 10.5 fL (9.4-12.4); Monocytes # 0.7 K/mcL (0.0-1.3); Neutrophils # 3.5 K/mcL (1.6-8.9); Platelet Count 134 K/mcL (140-400); Red Blood Count 4.78 M/mcL (4.19-5.50); Red Cell Distribution Width 17.3 % (11.5-14.5); Segmented Neutrophils % 58.4 %
[2021-07-26 05:36] LABS: % Iron Saturation 7 % (20-55); BUN/Creatinine Ratio 13 (6-26); Blood Urea Nitrogen 15 mg/dL (8-23); Calcium 8.3 mg/dL (8.6-10.3); Carbon Dioxide 25 mEq/L (23-29); Chloride 104 mEq/L (98-107); Glucose 89 mg/dL (70-105); Iron 22 mcg/dL (65-175); Magnesium 1.7 mg/dL (1.6-2.6); Osmolality,Calculated 282 (280-300); Sodium 136 mEq/L (136-145); Transferrin 230 mg/dL (203-362); eGFR For African Americans > 60 (> 60); eGFR For Non-African Americans > 60 (> 60)
[2021-07-26 05:48] LABS: Ferritin 46 ng/mL (20-250)
[2021-07-26 05:53] LABS: Folate 9.4 ng/mL (3.0-16.0)
[2021-07-26 06:09] LABS: Vitamin B12 > 1500 pg/mL (250-1100)
[2021-07-26] MEDS: *HR* Enoxaparin 40 MG/0.4 ML SYRINGE SQ SCH (06:24)
[2021-07-26] MEDS: Aspirin Enteric Coated 81 MG Tablet PO SCH (08:55)
[2021-07-26] MEDS: CeFAZolin 2,000 MG/120 ML BAG IVPB SCH ×3 (08:55→23:39)
[2021-07-26] MEDS: Loratadine 10 MG TABLET PO SCH (08:55)
[2021-07-26] MEDS: lisinopriL 10 MG TABLET PO SCH (08:55)
[2021-07-26] MEDS: carBAMazepine 200 MG TABLET PO SCH ×2 (08:56→20:42)
[2021-07-26] MEDS: Cyanocobalamin (B-12) 1,000 MCG TABLET PO SCH (08:56)
[2021-07-26] MEDS: Cholecalciferol (D-3) 1,000 UNIT (25MCG) TABLET PO SCH (08:56)
[2021-07-26 09:28] LABS: C-Reactive Protein 66 mg/L (Less than 10)
[2021-07-26] MEDS: Iron Sucrose Complex 250 MG in 0.9 % Sodium Chloride 250 ML IVPB SCH (09:35)
[2021-07-26] MEDS: clonazePAM 0.5 MG TABLET PO SCH (20:42)
[2021-07-27] MEDS: *HR* Enoxaparin 40 MG/0.4 ML SYRINGE SQ SCH (05:29)
[2021-07-27] MEDS: Aspirin Enteric Coated 81 MG Tablet PO SCH (08:00)
[2021-07-27] MEDS: Cholecalciferol (D-3) 1,000 UNIT (25MCG) TABLET PO SCH (08:00)
[2021-07-27] MEDS: carBAMazepine 200 MG TABLET PO SCH (08:00)
[2021-07-27] MEDS: lisinopriL 10 MG TABLET PO SCH (08:00)
[2021-07-27] MEDS: Loratadine 10 MG TABLET PO SCH (08:00)
[2021-07-27] MEDS: Cyanocobalamin (B-12) 1,000 MCG TABLET PO SCH (08:00)
[2021-07-27] MEDS: CeFAZolin 2,000 MG/120 ML BAG IVPB SCH (08:04)
[2021-07-27] MEDS: Iron Sucrose Complex 250 MG in 0.9 % Sodium Chloride 250 ML IVPB SCH (08:41)
[2021-07-27 10:53] VITALS: BP 146/81; PULSE 56; TEMP 97.3; O2SAT 98
== END 2021-07-27 14:15 | disposition home or self-care (01) | DRG 603 ==
LOC: 4WAOSI 18:39 → EMEROOARM 18:39 → SUATTDRO 07-24 00:12 → 4WAOSI 07-24 00:55
PROVIDERS: ADMIT Internal Medicine; ATTEND Pharmacist

== ENCOUNTER 2021-10-17 11:53 | Inpatient (IN) ==
[2021-10-17 12:52] LABS: Basophils # 0.1 K/mcL (0.0-0.2); Basophils % 0.7 %; Eosinophils # 0.2 K/mcL (0.0-0.6); Eosinophils % 2.7 %; Hematocrit 47.4 % (37.5-50.1); Immature Granulocytes % 0.3 % (0-4); Lymphocytes # 1.7 K/mcL (0.6-4.6); Lymphocytes % 23.9 %; Mean Corpuscular HGB Conc 33.8 g/dL (31.6-35.5); Mean Corpuscular Hemoglobin 27.8 pg (28.0-33.3); Mean Corpuscular Volume 82.4 fL (83.0-100.0); Mean Platelet Volume 9.5 fL (9.4-12.4); Monocytes # 0.5 K/mcL (0.0-1.3); Monocytes % 7.3 %; Neutrophils # 4.6 K/mcL (1.6-8.9); Platelet Count 153 K/mcL (140-400); Red Blood Count 5.75 M/mcL (4.19-5.50); Red Cell Distribution Width 17.3 % (11.5-14.5); Segmented Neutrophils % 65.1 %; White Blood Count 7.1 K/mcL (4.3-11.1)
[2021-10-17 13:34] LABS: BUN/Creatinine Ratio 10 (6-26); Blood Urea Nitrogen 13 mg/dL (8-23); Calcium 9.3 mg/dL (8.6-10.3); Carbon Dioxide 26 mEq/L (23-29); Chloride 94 mEq/L (98-107); Glucose 93 mg/dL (70-105); Osmolality,Calculated 264 (280-300); Potassium 4.4 mEq/L (3.5-5.1); Sodium 127 mEq/L (136-145); eGFR For African Americans > 60 (> 60); eGFR For Non-African Americans 55 (> 60)
[2021-10-17 13:45] LABS: Influenza A PCR Negative (Negative); Influenza B PCR Negative (Negative); Resp. Syncytial Virus PCR Negative (Negative)
[2021-10-17] MEDS ORDERED: cefTRIAXone 2,000 MG in 0.9 % Sodium Chloride 20 ML IVP ONE (13:47)
[2021-10-17] MEDS ORDERED: Azithromycin 500 MG in 0.9 % Sodium Chloride 250 ML IVPB ONE (13:47)
[2021-10-17 14:02] LABS: SARS-CoV-2 by PCR (In House) Negative (Negative)
[2021-10-17] MEDS ORDERED: Ondansetron 4 MG/2 ML VIAL IVP PRN (15:00)
[2021-10-17] MEDS ORDERED: Melatonin 3 MG TABLET PO PRN (15:00)
[2021-10-17] MEDS ORDERED: Naloxone 0.4 MG/ML INJ IVP PRN (15:00)
[2021-10-17] MEDS ORDERED: Acetaminophen 325 MG TABLET PO PRN (15:00)
[2021-10-17] MEDS ORDERED: Perflutren Lipid Microsphere 1.3 ML in 0.9 % Sodium Chloride 8.7 ML IVP PRN (15:04)
[2021-10-17] MEDS: Ipratropium/Albuterol Neb 3 ML IH SCH ×2 (16:05→20:47)
[2021-10-17] MEDS: carBAMazepine 200 MG TABLET PO SCH (20:25)
[2021-10-17] MEDS: clonazePAM 0.5 MG TABLET PO SCH (21:53)
[2021-10-17] MEDS ORDERED: 0.9 % Sodium Chloride 1,000 ML IVC SCH (22:30)
[2021-10-18] MEDS: Ipratropium/Albuterol Neb 3 ML IH SCH ×3 (00:35→07:07)
[2021-10-18 03:27] LABS: Hematocrit 43.3 % (37.5-50.1); Hemoglobin 15.4 g/dL (12.9-16.9); Mean Corpuscular HGB Conc 35.6 g/dL (31.6-35.5); Mean Corpuscular Hemoglobin 29.6 pg (28.0-33.3); Mean Corpuscular Volume 83.1 fL (83.0-100.0); Mean Platelet Volume 10.3 fL (9.4-12.4); Platelet Count 143 K/mcL (140-400); Red Blood Count 5.21 M/mcL (4.19-5.50); Red Cell Distribution Width 17.2 % (11.5-14.5); White Blood Count 7.2 K/mcL (4.3-11.1)
[2021-10-18 03:53] LABS: BUN/Creatinine Ratio 12 (6-26); Blood Urea Nitrogen 16 mg/dL (8-23); Calcium 8.9 mg/dL (8.6-10.3); Carbon Dioxide 25 mEq/L (23-29); Chloride 91 mEq/L (98-107); Chol/HDL Ratio 2.7 (0-4.9); Cholesterol 134 mg/dL (< 200); Glucose 97 mg/dL (70-105); HDL Cholesterol 49 mg/dL (40-59); LDL Cholesterol,Calculated 70 mg/dL (< 100); Osmolality,Calculated 267 (280-300); Potassium 3.7 mEq/L (3.5-5.1); Sodium 128 mEq/L (136-145); Triglycerides 77 mg/dL (< 150); eGFR For African Americans > 60 (> 60); eGFR For Non-African Americans 52 (> 60)
[2021-10-18] MEDS: (Terbinafine Hcl [Terbinafine Hcl] 250 MG Tablet) PO SCH (08:01)
[2021-10-18] MEDS: Cyanocobalamin (B-12) 1,000 MCG TABLET PO SCH (08:02)
[2021-10-18] MEDS: Aspirin Enteric Coated 81 MG Tablet PO SCH (08:02)
[2021-10-18] MEDS: carBAMazepine 200 MG TABLET PO SCH ×2 (08:03→21:36)
[2021-10-18] MEDS: Cholecalciferol (D-3) 1,000 UNIT (25MCG) TABLET PO SCH (08:03)
[2021-10-18] MEDS: Levalbuterol Neb 1.25 MG/3 ML IH SCH ×3 (08:41→20:25)
[2021-10-18] MEDS ORDERED: lisinopriL 20 MG TABLET PO SCH (09:00)
[2021-10-18] MEDS ORDERED: Azithromycin 250 MG TABLET PO SCH (09:00)
[2021-10-18] MEDS ORDERED: Tiotropium 10 INH DOSE IH SCH (09:00)
[2021-10-18] MEDS ORDERED: *HR* Heparin 5,000 UNIT/ML VIAL IVP ONE (09:45)
[2021-10-18] MEDS ORDERED: *HR* Heparin 5,000 UNIT/ML VIAL IVP PRN ×2 (09:45)
[2021-10-18 10:37] LABS: Red Cell Distribution Width 17.2 % (11.5-14.5)
[2021-10-18 10:39] LABS: Hematocrit 42.4 % (37.5-50.1); Hemoglobin 14.4 g/dL (12.9-16.9); Immature Platelets 4.7 % (1.1-6.1); Mean Corpuscular Hemoglobin 28.3 pg (28.0-33.3); Mean Corpuscular Volume 83.5 fL (83.0-100.0); Mean Platelet Volume 9.4 fL (9.4-12.4); Red Blood Count 5.08 M/mcL (4.19-5.50); White Blood Count 6.4 K/mcL (4.3-11.1)
[2021-10-18 10:46] LABS: INR 1.2; Prothrombin Time 13.4 Seconds (9.4-12.1)
[2021-10-18 10:52] LABS: Heparin anti-factor XA UFH < 0.04 IU/mL (0.30-0.70)
[2021-10-18] MEDS: Heparin 25,000UNIT/250ML 1/2NS 25,000 UNIT/250 ML IV.SOLN IVC SCH (11:38)
[2021-10-18] MEDS: cefTRIAXone 1,000 MG in 0.9 % Sodium Chloride 10 ML IVP SCH (14:33)
[2021-10-18] MEDS: clonazePAM 0.5 MG TABLET PO SCH (21:36)
[2021-10-19] MEDS: Levalbuterol Neb 1.25 MG/3 ML IH SCH ×4 (03:29→22:55)
[2021-10-19] MEDS: Heparin 25,000UNIT/250ML 1/2NS 25,000 UNIT/250 ML IV.SOLN IVC SCH (08:07)
[2021-10-19 09:11] LABS: BUN/Creatinine Ratio 14 (6-26); Blood Urea Nitrogen 16 mg/dL (8-23); Calcium 8.8 mg/dL (8.6-10.3); Carbon Dioxide 24 mEq/L (23-29); Chloride 95 mEq/L (98-107); Glucose 94 mg/dL (70-105); Osmolality,Calculated 263 (280-300); Potassium 4.4 mEq/L (3.5-5.1); Sodium 126 mEq/L (136-145); eGFR For African Americans > 60 (> 60); eGFR For Non-African Americans > 60 (> 60)
[2021-10-19] MEDS ORDERED: 0.9 % Sodium Chloride 500 ML IVC ONE (09:35)
[2021-10-19] MEDS ORDERED: Lidocaine Viscous Oral Soln 15 ML SOLUTION MM PRN (09:35)
[2021-10-19] MEDS: *HR* FentaNYL (PF) 100 MCG/2 ML VIAL IVP PRN ×7 (10:03→10:40)
[2021-10-19] MEDS: *HR* Midazolam HCl 5 MG/5 ML VIAL IVP PRN ×6 (10:03→10:40)
[2021-10-19] MEDS: Aspirin Enteric Coated 81 MG Tablet PO SCH (11:55)
[2021-10-19] MEDS: (Terbinafine Hcl [Terbinafine Hcl] 250 MG Tablet) PO SCH (11:56)
[2021-10-19] MEDS: Cyanocobalamin (B-12) 1,000 MCG TABLET PO SCH (11:56)
[2021-10-19] MEDS: carBAMazepine 200 MG TABLET PO SCH ×2 (11:56→22:07)
[2021-10-19] MEDS: Cholecalciferol (D-3) 1,000 UNIT (25MCG) TABLET PO SCH (11:56)
[2021-10-19] MEDS: Doxycycline 100 MG CAPSULE PO SCH ×2 (11:56→22:07)
[2021-10-19] MEDS: cefTRIAXone 1,000 MG in 0.9 % Sodium Chloride 10 ML IVP SCH (13:26)
[2021-10-19] MEDS: clonazePAM 0.5 MG TABLET PO SCH (22:07)
[2021-10-20] MEDS: Levalbuterol Neb 1.25 MG/3 ML IH SCH ×4 (04:11→20:17)
[2021-10-20] MEDS: Heparin 25,000UNIT/250ML 1/2NS 25,000 UNIT/250 ML IV.SOLN IVC SCH (04:35)
[2021-10-20] MEDS: Aspirin Enteric Coated 81 MG Tablet PO SCH (07:57)
[2021-10-20] MEDS: Cholecalciferol (D-3) 1,000 UNIT (25MCG) TABLET PO SCH (07:58)
[2021-10-20] MEDS: Cyanocobalamin (B-12) 1,000 MCG TABLET PO SCH (07:58)
[2021-10-20] MEDS: Doxycycline 100 MG CAPSULE PO SCH ×2 (07:58→21:09)
[2021-10-20] MEDS: carBAMazepine 200 MG TABLET PO SCH ×2 (07:58→21:10)
[2021-10-20] MEDS: DilTIAZem CD (24hr) 120 MG CAP.ER.24H PO SCH (09:01)
[2021-10-20] MEDS: polyethylene glycoL 3350 17 GM POWD.PACK PO SCH (09:01)
[2021-10-20 09:08] LABS: BUN/Creatinine Ratio 14 (6-26); Blood Urea Nitrogen 17 mg/dL (8-23); Calcium 9.2 mg/dL (8.6-10.3); Carbon Dioxide 27 mEq/L (23-29); Chloride 96 mEq/L (98-107); Glucose 86 mg/dL (70-105); Osmolality,Calculated 269 (280-300); Potassium 4.6 mEq/L (3.5-5.1); Sodium 129 mEq/L (136-145); eGFR For African Americans > 60 (> 60); eGFR For Non-African Americans 60 (> 60)
[2021-10-20] MEDS: cefTRIAXone 1,000 MG in 0.9 % Sodium Chloride 10 ML IVP SCH (14:07)
[2021-10-20] MEDS: clonazePAM 0.5 MG TABLET PO SCH (21:10)
[2021-10-21] MEDS: Heparin 25,000UNIT/250ML 1/2NS 25,000 UNIT/250 ML IV.SOLN IVC SCH ×3 (00:36→22:39)
[2021-10-21] MEDS: Levalbuterol Neb 1.25 MG/3 ML IH SCH ×4 (04:42→21:34)
[2021-10-21 06:48] LABS: BUN/Creatinine Ratio 13 (6-26); Blood Urea Nitrogen 15 mg/dL (8-23); Calcium 8.7 mg/dL (8.6-10.3); Carbon Dioxide 24 mEq/L (23-29); Chloride 97 mEq/L (98-107); Glucose 98 mg/dL (70-105); Osmolality,Calculated 271 (280-300); Potassium 4.5 mEq/L (3.5-5.1); Sodium 130 mEq/L (136-145); eGFR For African Americans > 60 (> 60); eGFR For Non-African Americans > 60 (> 60)
[2021-10-21] MEDS ORDERED: Regadenoson 0.4 MG/5 ML SYRINGE IVP ONE (06:56)
[2021-10-21] MEDS: polyethylene glycoL 3350 17 GM POWD.PACK PO SCH (11:21)
[2021-10-21] MEDS: Cholecalciferol (D-3) 1,000 UNIT (25MCG) TABLET PO SCH (11:21)
[2021-10-21] MEDS: DilTIAZem CD (24hr) 120 MG CAP.ER.24H PO SCH (11:22)
[2021-10-21] MEDS: Cyanocobalamin (B-12) 1,000 MCG TABLET PO SCH (11:22)
[2021-10-21] MEDS: Aspirin Enteric Coated 81 MG Tablet PO SCH (11:22)
[2021-10-21] MEDS: carBAMazepine 200 MG TABLET PO SCH ×2 (11:28→21:04)
[2021-10-21] MEDS: Doxycycline 100 MG CAPSULE PO SCH ×2 (11:35→21:04)
[2021-10-21] MEDS: cefTRIAXone 1,000 MG in 0.9 % Sodium Chloride 10 ML IVP SCH (14:01)
[2021-10-21] MEDS: clonazePAM 0.5 MG TABLET PO SCH (21:04)
[2021-10-22] MEDS: Levalbuterol Neb 1.25 MG/3 ML IH SCH ×2 (03:53→11:47)
[2021-10-22 07:16] LABS: Basophils # 0.1 K/mcL (0.0-0.2); Basophils % 0.9 %; Eosinophils # 0.3 K/mcL (0.0-0.6); Eosinophils % 4.9 %; Hematocrit 41.7 % (37.5-50.1); Hemoglobin 13.7 g/dL (12.9-16.9); Immature Granulocytes % 0.6 % (0-4); Immature Platelets 4.2 % (1.1-6.1); Lymphocytes # 1.4 K/mcL (0.6-4.6); Mean Corpuscular HGB Conc 32.9 g/dL (31.6-35.5); Mean Corpuscular Hemoglobin 27.8 pg (28.0-33.3); Mean Corpuscular Volume 84.8 fL (83.0-100.0); Mean Platelet Volume 9.6 fL (9.4-12.4); Monocytes # 0.5 K/mcL (0.0-1.3); Monocytes % 7.7 %; Neutrophils # 4.2 K/mcL (1.6-8.9); Platelet Count 133 K/mcL (140-400); Red Blood Count 4.92 M/mcL (4.19-5.50); Red Cell Distribution Width 17.2 % (11.5-14.5); Segmented Neutrophils % 64.9 %; White Blood Count 6.5 K/mcL (4.3-11.1)
[2021-10-22 07:36] LABS: Alanine Aminotransferase 14 Units/L (7-52); Albumin/Globulin Ratio 1.8 (1.1-2.2); Alkaline Phosphatase 67 Units/L (34-104); Aspartate Amino Transferase 23 Units/L (13-39); BUN/Creatinine Ratio 11 (6-26); Bilirubin,Total 0.5 mg/dL (0.3-1.0); Blood Urea Nitrogen 13 mg/dL (8-23); Calcium 9.1 mg/dL (8.6-10.3); Carbon Dioxide 27 mEq/L (23-29); Chloride 95 mEq/L (98-107); Globulin 2.2 g/dL (2.4-3.5); Glucose 95 mg/dL (70-105); Osmolality,Calculated 266 (280-300); Potassium 4.7 mEq/L (3.5-5.1); Sodium 128 mEq/L (136-145); Total Protein 6.2 g/dL (6.4-8.9); eGFR For African Americans > 60 (> 60); eGFR For Non-African Americans > 60 (> 60)
[2021-10-22] MEDS: Doxycycline 100 MG CAPSULE PO SCH ×2 (09:34→20:07)
[2021-10-22] MEDS: Aspirin Enteric Coated 81 MG Tablet PO SCH (09:34)
[2021-10-22] MEDS: Cyanocobalamin (B-12) 1,000 MCG TABLET PO SCH (09:35)
[2021-10-22] MEDS: polyethylene glycoL 3350 17 GM POWD.PACK PO SCH (09:36)
[2021-10-22] MEDS: DilTIAZem CD (24hr) 120 MG CAP.ER.24H PO SCH (09:36)
[2021-10-22] MEDS: Cholecalciferol (D-3) 1,000 UNIT (25MCG) TABLET PO SCH (09:36)
[2021-10-22] MEDS: carBAMazepine 200 MG TABLET PO SCH ×2 (09:44→20:09)
[2021-10-22] MEDS: Heparin 25,000UNIT/250ML 1/2NS 25,000 UNIT/250 ML IV.SOLN IVC SCH (09:52)
[2021-10-22] MEDS ORDERED: Levalbuterol Neb 1.25 MG/3 ML IH PRN (11:14)
[2021-10-22] MEDS ORDERED: 0.9 % Sodium Chloride 1,000 ML ONE (13:55)
[2021-10-22] MEDS: cefTRIAXone 1,000 MG in 0.9 % Sodium Chloride 10 ML IVP SCH (14:00)
[2021-10-22] MEDS ORDERED: *HR* Midazolam HCl 2 MG/2 ML VIAL ONE (14:50)
[2021-10-22] MEDS ORDERED: *HR* FentaNYL (PF) 100 MCG/2 ML VIAL ONE (14:50)
[2021-10-22] MEDS ORDERED: ISOVUE-370 200 ML INFUS..BTL ONE (14:51)
[2021-10-22] MEDS ORDERED: 0.9 % Sodium Chloride 2,000 ML ONE (14:51)
[2021-10-22] MEDS ORDERED: *HR* Heparin 10,000 UNIT/10 ML VIAL ONE (14:51)
[2021-10-22] MEDS ORDERED: Heparin 1,000 UNITS/500 mL 500 ML ONE (14:51)
[2021-10-22] MEDS ORDERED: Nitroglycerin 1,000 MCG/5 ML VIAL IV ONE (15:39)
[2021-10-22] MEDS: *HR* Rivaroxaban 10 MG TABLET PO SCH (20:06)
[2021-10-22] MEDS: clonazePAM 0.5 MG TABLET PO SCH (20:06)
[2021-10-23 02:02] LABS: Basophils % 0.8 %; Mean Platelet Volume 9.8 fL (9.4-12.4)
[2021-10-23 02:04] LABS: Basophils # 0.1 K/mcL (0.0-0.2); Eosinophils # 0.4 K/mcL (0.0-0.6); Eosinophils % 6.4 %; Hematocrit 38.3 % (37.5-50.1); Hemoglobin 12.9 g/dL (12.9-16.9); Immature Granulocytes % 0.3 % (0-4); Immature Platelets 4.7 % (1.1-6.1); Lymphocytes # 1.4 K/mcL (0.6-4.6); Lymphocytes % 23.5 %; Mean Corpuscular HGB Conc 33.7 g/dL (31.6-35.5); Mean Corpuscular Hemoglobin 28.5 pg (28.0-33.3); Mean Corpuscular Volume 84.7 fL (83.0-100.0); Monocytes # 0.6 K/mcL (0.0-1.3); Monocytes % 10.4 %; Neutrophils # 3.6 K/mcL (1.6-8.9); Platelet Count 125 K/mcL (140-400); Red Blood Count 4.52 M/mcL (4.19-5.50); Segmented Neutrophils % 58.6 %; White Blood Count 6.1 K/mcL (4.3-11.1)
[2021-10-23 02:41] LABS: Alanine Aminotransferase 15 Units/L (7-52); Albumin 3.4 g/dL (3.5-5.7); Albumin/Globulin Ratio 1.5 (1.1-2.2); Alkaline Phosphatase 62 Units/L (34-104); Aspartate Amino Transferase 25 Units/L (13-39); BUN/Creatinine Ratio 9 (6-26); Bilirubin,Total 0.6 mg/dL (0.3-1.0); Blood Urea Nitrogen 13 mg/dL (8-23); Calcium 8.7 mg/dL (8.6-10.3); Carbon Dioxide 27 mEq/L (23-29); Chloride 94 mEq/L (98-107); Globulin 2.2 g/dL (2.4-3.5); Glucose 86 mg/dL (70-105); Osmolality,Calculated 259 (280-300); Potassium 4.6 mEq/L (3.5-5.1); Sodium 125 mEq/L (136-145); Total Protein 5.6 g/dL (6.4-8.9); eGFR For African Americans > 60 (> 60); eGFR For Non-African Americans 50 (> 60)
[2021-10-23] MEDS: Doxycycline 100 MG CAPSULE PO SCH (08:33)
[2021-10-23] MEDS: Cyanocobalamin (B-12) 1,000 MCG TABLET PO SCH (08:33)
[2021-10-23] MEDS: DilTIAZem CD (24hr) 120 MG CAP.ER.24H PO SCH (08:33)
[2021-10-23] MEDS: Cholecalciferol (D-3) 1,000 UNIT (25MCG) TABLET PO SCH (08:33)
[2021-10-23] MEDS: Aspirin Enteric Coated 81 MG Tablet PO SCH (08:33)
[2021-10-23] MEDS: polyethylene glycoL 3350 17 GM POWD.PACK PO SCH (08:34)
[2021-10-23] MEDS: carBAMazepine 200 MG TABLET PO SCH ×2 (08:34→20:24)
[2021-10-23] MEDS: 0.9 % Sodium Chloride 1,000 ML IVC SCH ×2 (14:03→14:05)
[2021-10-23] MEDS: cefTRIAXone 1,000 MG in 0.9 % Sodium Chloride 10 ML IVP SCH (14:03)
[2021-10-23] MEDS: *HR* Rivaroxaban 10 MG TABLET PO SCH (17:02)
[2021-10-23 20:15] LABS: BUN/Creatinine Ratio 11 (6-26); Blood Urea Nitrogen 14 mg/dL (8-23); Calcium 8.8 mg/dL (8.6-10.3); Carbon Dioxide 30 mEq/L (23-29); Chloride 94 mEq/L (98-107); Glucose 90 mg/dL (70-105); Osmolality,Calculated 262 (280-300); Potassium 4.7 mEq/L (3.5-5.1); Sodium 126 mEq/L (136-145); eGFR For African Americans > 60 (> 60); eGFR For Non-African Americans 52 (> 60)
[2021-10-23] MEDS: clonazePAM 0.5 MG TABLET PO SCH (20:25)
[2021-10-24] MEDS: 0.9 % Sodium Chloride 1,000 ML IVC SCH (00:03)
[2021-10-24] MEDS: Doxycycline 100 MG CAPSULE PO SCH ×3 (07:14→21:18)
[2021-10-24 07:40] LABS: BUN/Creatinine Ratio 11 (6-26); Blood Urea Nitrogen 13 mg/dL (8-23); Calcium 8.5 mg/dL (8.6-10.3); Carbon Dioxide 27 mEq/L (23-29); Chloride 94 mEq/L (98-107); Glucose 94 mg/dL (70-105); Osmolality,Calculated 262 (280-300); Potassium 4.3 mEq/L (3.5-5.1); Sodium 126 mEq/L (136-145); eGFR For African Americans > 60 (> 60); eGFR For Non-African Americans > 60 (> 60)
[2021-10-24] MEDS: DilTIAZem CD (24hr) 120 MG CAP.ER.24H PO SCH (08:30)
[2021-10-24] MEDS: Cholecalciferol (D-3) 1,000 UNIT (25MCG) TABLET PO SCH (08:31)
[2021-10-24] MEDS: Cyanocobalamin (B-12) 1,000 MCG TABLET PO SCH (08:31)
[2021-10-24] MEDS: carBAMazepine 200 MG TABLET PO SCH ×2 (08:31→21:17)
[2021-10-24] MEDS: Aspirin Enteric Coated 81 MG Tablet PO SCH (08:31)
[2021-10-24] MEDS: polyethylene glycoL 3350 17 GM POWD.PACK PO SCH (08:34)
[2021-10-24] MEDS: cefTRIAXone 1,000 MG in 0.9 % Sodium Chloride 10 ML IVP SCH (14:56)
[2021-10-24] MEDS: *HR* Rivaroxaban 10 MG TABLET PO SCH (17:16)
[2021-10-24] MEDS: clonazePAM 0.5 MG TABLET PO SCH (21:18)
[2021-10-25 02:37] LABS: BUN/Creatinine Ratio 13 (6-26); Blood Urea Nitrogen 14 mg/dL (8-23); Calcium 8.6 mg/dL (8.6-10.3); Carbon Dioxide 25 mEq/L (23-29); Chloride 94 mEq/L (98-107); Glucose 88 mg/dL (70-105); Osmolality,Calculated 262 (280-300); Potassium 4.1 mEq/L (3.5-5.1); Sodium 126 mEq/L (136-145); eGFR For African Americans > 60 (> 60); eGFR For Non-African Americans > 60 (> 60)
[2021-10-25 10:06] LABS: Uric Acid 2.7 mg/dL (2.3-7.6)
[2021-10-25 10:19] LABS: Thyroid Stimulating Hormone 3.647 mcIU/mL (0.340-5.600)
[2021-10-25] MEDS: DilTIAZem CD (24hr) 120 MG CAP.ER.24H PO SCH (10:22)
[2021-10-25] MEDS: Cholecalciferol (D-3) 1,000 UNIT (25MCG) TABLET PO SCH (10:22)
[2021-10-25] MEDS: Cyanocobalamin (B-12) 1,000 MCG TABLET PO SCH (10:22)
[2021-10-25] MEDS: Aspirin Enteric Coated 81 MG Tablet PO SCH (10:22)
[2021-10-25] MEDS: polyethylene glycoL 3350 17 GM POWD.PACK PO SCH (10:23)
[2021-10-25] MEDS: Doxycycline 100 MG CAPSULE PO SCH (10:29)
[2021-10-25] MEDS: carBAMazepine 200 MG TABLET PO SCH ×2 (10:49→21:28)
[2021-10-25] MEDS: cefTRIAXone 1,000 MG in 0.9 % Sodium Chloride 10 ML IVP SCH (15:04)
[2021-10-25] MEDS: *HR* Rivaroxaban 10 MG TABLET PO SCH (17:41)
[2021-10-25] MEDS: clonazePAM 0.5 MG TABLET PO SCH (21:28)
[2021-10-26 06:37] LABS: BUN/Creatinine Ratio 14 (6-26); Blood Urea Nitrogen 15 mg/dL (8-23); Calcium 8.8 mg/dL (8.6-10.3); Carbon Dioxide 28 mEq/L (23-29); Chloride 93 mEq/L (98-107); Glucose 95 mg/dL (70-105); Osmolality,Calculated 263 (280-300); Potassium 4.5 mEq/L (3.5-5.1); Sodium 126 mEq/L (136-145); eGFR For African Americans > 60 (> 60); eGFR For Non-African Americans > 60 (> 60)
[2021-10-26] MEDS: polyethylene glycoL 3350 17 GM POWD.PACK PO SCH (08:32)
[2021-10-26] MEDS: Cyanocobalamin (B-12) 1,000 MCG TABLET PO SCH (08:32)
[2021-10-26] MEDS: DilTIAZem CD (24hr) 120 MG CAP.ER.24H PO SCH (08:32)
[2021-10-26] MEDS: Aspirin Enteric Coated 81 MG Tablet PO SCH (08:32)
[2021-10-26] MEDS: Cholecalciferol (D-3) 1,000 UNIT (25MCG) TABLET PO SCH (08:32)
[2021-10-26] MEDS ORDERED: Tolvaptan 15 MG TABLET PO ONE (12:48)
[2021-10-26] MEDS: *HR* Rivaroxaban 10 MG TABLET PO SCH (18:25)
[2021-10-26 20:18] LABS: BUN/Creatinine Ratio 13 (6-26); Blood Urea Nitrogen 15 mg/dL (8-23); Calcium 9.4 mg/dL (8.6-10.3); Carbon Dioxide 29 mEq/L (23-29); Chloride 95 mEq/L (98-107); Glucose 59 mg/dL (70-105); Osmolality,Calculated 269 (280-300); Potassium 4.4 mEq/L (3.5-5.1); Sodium 130 mEq/L (136-145); eGFR For African Americans > 60 (> 60); eGFR For Non-African Americans > 60 (> 60)
[2021-10-26] MEDS: clonazePAM 0.5 MG TABLET PO SCH (22:00)
[2021-10-27 05:25] LABS: BUN/Creatinine Ratio 15 (6-26); Blood Urea Nitrogen 17 mg/dL (8-23); Calcium 9.2 mg/dL (8.6-10.3); Carbon Dioxide 25 mEq/L (23-29); Chloride 102 mEq/L (98-107); Glucose 111 mg/dL (70-105); eGFR For African Americans > 60 (> 60); eGFR For Non-African Americans > 60 (> 60)
[2021-10-27 05:28] LABS: Osmolality,Calculated 282 (280-300); Potassium 4.7 mEq/L (3.5-5.1); Sodium 135 mEq/L (136-145)
[2021-10-27] MEDS: polyethylene glycoL 3350 17 GM POWD.PACK PO SCH (07:58)
[2021-10-27] MEDS: Cyanocobalamin (B-12) 1,000 MCG TABLET PO SCH (07:58)
[2021-10-27] MEDS: Cholecalciferol (D-3) 1,000 UNIT (25MCG) TABLET PO SCH (07:58)
[2021-10-27] MEDS: Aspirin Enteric Coated 81 MG Tablet PO SCH (07:59)
[2021-10-27] MEDS: DilTIAZem CD (24hr) 120 MG CAP.ER.24H PO SCH (07:59)
[2021-10-27 08:15] VITALS: BP 112/76; PULSE 62; TEMP 97.5; O2SAT 96
== END 2021-10-27 10:41 | disposition home or self-care (01) | DRG 286 ==
LOC: EMEROOARM 11:53 → 3ANU 11:53 → SUATTDRO 14:28 → 3ANU 15:20 → SUATTDRO 10-19 22:38
PROVIDERS: ADMIT Internal Medicine; ATTEND Internal Medicine